=== PATIENT | male | born 1995 | race Caucasian/White ===

== ENCOUNTER 2022-04-30 22:12 | Emergency (ER) | payer OTHER ==
[~2022-04-30] VITALS: Ht 175.2 cm; Wt 90.7 kg
[2022-04-30] MEDS ORDERED: CYCLOBENZAPRINE10 MG PO (22:27)
[2022-04-30] MEDS ORDERED: NAPROSYN500 MG PO (22:27)
[2022-04-30] MEDS ORDERED: ONDANSETRON4 MG SL (22:35)
== END 2022-04-30 23:04 | disposition home or self-care (01) ==
LOC: ED 22:12
DX: M54.50 Low back pain, unspecified (principal); M62.830 Muscle spasm of back; Z88.1 Allergy status to other antibiotic agents

== ENCOUNTER 2022-05-02 12:28 | Emergency (ER) | payer OTHER ==
[~2022-05-02] VITALS: Ht 175.2 cm; Wt 93.0 kg
[~2022-05-02 12:28] MED LIST: CYCLOBENZAPRINE10 MG PO; NAPROSYN500 MG PO; ONDANSETRON4 MG SL
[2022-05-02 17:31] LABS: BILIRUBIN 1+ (Negative); BLOOD 3+ (Negative); CLARITY Turbid (Clear); GLUCOSE Negative (Negative); KETONE Negative (Negative); LEUKO ESTERASE 1+ (Negative); NITRITE Negative (Negative); PH 6.5 (4.5-8.0)
[2022-05-02 17:34] LABS: BASO # 0.1 10*3/uL (0.0-0.1); BASO % 0.6 % (0.0-1.0); EOS # 0.1 10*3/uL (0.0-0.4); EOS % 1.3 % (1.0-4.0); HEMATOCRIT 47.9 % (42.0-52.0); LYMPH # 2.6 10*3/uL (1.3-4.4); LYMPH % 24.7 % (27.0-41.0); MEAN CELL VOLUME 86.5 fl (80.0-94.0); MEAN CORPUSCULAR HGB 28.7 pg (27.0-31.0); MEAN CORPUSCULAR HGB CONC 33.2 g/dl (33.0-37.0); MEAN PLATELET VOLUME 9.8 fl (9.6-12.3); MONO # 0.7 10*3/uL (0.1-1.0); MONO % 6.8 % (3.0-9.0); NEUT # 6.9 10*3/uL (2.3-7.9); NEUT % 66.1 % (47.0-73.0); PLATELET COUNT AUTOMATED 292 10*3/uL (130-400); RED BLOOD COUNT 5.54 10*6/uL (4.50-5.90); WHITE BLOOD COUNT 10.4 10*3/uL (4.8-10.8)
[2022-05-02 17:46] LABS: ACT PARTIAL THROMBO TIME 31.2 SECONDS (20.0-32.1)
[2022-05-02 17:52] LABS: ALKALINE PHOSPHATASE 66 U/L (45-117); BUN 13 mg/dl (7-24); CHLORIDE 109 mmol/L (98-107); CREATININE 0.99 mg/dL (0.70-1.30); POTASSIUM 3.6 mmol/L (3.5-5.1); SGPT/ALT 26 U/L (12-78); SODIUM 139 mmol/L (136-145); TOTAL PROTEIN 7.8 gm/dL (6.4-8.2)
[2022-05-02] MEDS ORDERED: CIPRO500 MG PO (18:22)
[2022-05-02] MEDS ORDERED: FLOMAX0.4 MG PO (18:22)
[2022-05-02 18:33] LABS: COLOR Red (Yellow)
[2022-05-02 18:34] LABS: RBC TNTC rbc/hpf (0-2)
== END 2022-05-02 18:34 | disposition home or self-care (01) ==
LOC: ED 12:28
PROVIDERS: Emergency Medicine
DX: N20.0 Calculus of kidney (principal); R31.9 Hematuria, unspecified; Z88.1 Allergy status to other antibiotic agents

== ENCOUNTER 2022-05-13 15:24 | Emergency (ER) | payer OTHER ==
[~2022-05-13] VITALS: Ht 177.8 cm; Wt 92.1 kg
[~2022-05-13 15:24] MED LIST changes: +CIPRO500 MG PO; +FLOMAX0.4 MG PO
[2022-05-13] MEDS ORDERED: PHENERGAN25 M3 PO (17:57)
== END 2022-05-13 18:05 | disposition home or self-care (01) ==
LOC: ED 15:24
DX: R11.10 Vomiting, unspecified (principal); R10.9 Unspecified abdominal pain; Z88.1 Allergy status to other antibiotic agents

== ENCOUNTER → 2022-05-18 | Outpatient (CLI) | payer OTHER ==
[~2022-05-18] MED LIST changes: +PHENERGAN25 M3 PO
== END | disposition home or self-care (01) ==
LOC: RAD 11:02
PROVIDERS: ATTEND Urology
DX: N20.0 Calculus of kidney (principal)

== ENCOUNTER → 2022-06-30 | Outpatient (CLI) | payer OTHER ==
[2022-06-30 10:36] LABS: BASO # 0.1 10*3/uL (0.0-0.1); BASO % 0.8 % (0.0-1.0); BILIRUBIN Negative (Negative); BLOOD Negative (Negative); CLARITY Clear (Clear); COLOR Yellow (Yellow); EOS # 0.2 10*3/uL (0.0-0.4); EOS % 2.6 % (1.0-4.0); GLUCOSE Negative (Negative); HEMATOCRIT 50.8 % (42.0-52.0); KETONE Negative (Negative); LEUKO ESTERASE Negative (Negative); LYMPH # 2.1 10*3/uL (1.3-4.4); LYMPH % 33.3 % (27.0-41.0); MEAN CELL VOLUME 88.5 fl (80.0-94.0); MEAN CORPUSCULAR HGB 28.6 pg (27.0-31.0); MEAN CORPUSCULAR HGB CONC 32.3 g/dl (33.0-37.0); MEAN PLATELET VOLUME 10.9 fl (9.6-12.3); MONO # 0.5 10*3/uL (0.1-1.0); MONO % 7.9 % (3.0-9.0); NEUT # 3.4 10*3/uL (2.3-7.9); NEUT % 55.1 % (47.0-73.0); NITRITE Negative (Negative); PH 6.5 (4.5-8.0); PLATELET COUNT AUTOMATED 229 10*3/uL (130-400); RED BLOOD COUNT 5.74 10*6/uL (4.50-5.90); RED CELL DISTRI WIDTH 13.3 % (0-14.5); SPECIFIC GRAVITY 1.025 (1.001-1.030); WHITE BLOOD COUNT 6.2 10*3/uL (4.8-10.8)
[2022-06-30 10:54] LABS: ALKALINE PHOSPHATASE 61 U/L (46-116); BUN 14 mg/dl (9-23); CHLORIDE 104 mmol/L (98-107); POTASSIUM 3.6 mmol/L (3.4-5.1); SGPT/ALT 18 U/L (10-49); T3 UPTAKE 24.9 % (22.4-36.7); THYROXINE (T4) TOTAL 5.1 ug/dl (4.5-10.9); TOTAL PROTEIN 7.7 gm/dL (6.0-8.0)
[2022-06-30 11:05] LABS: BACTERIA 2+; WBC 0-2 wbc/hpf (0-5)
== END | disposition home or self-care (01) ==
LOC: LAB 09:44 → US 13:00
PROVIDERS: ATTEND Urology
DX: N20.0 Calculus of kidney (principal); E83.50 Unspecified disorder of calcium metabolism; R31.9 Hematuria, unspecified

== ENCOUNTER → 2022-07-02 | Outpatient (CLI) | payer OTHER | END | disposition home or self-care (01) | LOC: LAB 07:20 | PROVIDERS: ATTEND Urology | DX: N20.0 Calculus of kidney (principal); R31.9 Hematuria, unspecified ==

== ENCOUNTER → 2022-10-03 | Outpatient (CLI) | payer OTHER | END | disposition home or self-care (01) | LOC: CT 01:10 | PROVIDERS: ATTEND Urology | DX: N20.0 Calculus of kidney (principal); R10.9 Unspecified abdominal pain ==